=== PATIENT | female | born 1980 | race Caucasian/White ===

== ENCOUNTER → 2020-05-14 | Outpatient (CLI) | payer BC | LOC: LABNPT 08:09 | PROVIDERS: ATTEND Family Medicine | DX: Z20.828 Contact with and (suspected) exposure to other viral communicable diseases (principal) | CPT/HCPCS: 87635 ==

== ENCOUNTER 2020-11-06 16:57 | Emergency (ER) | payer BC, OTHER ==
[2020-11-06 17:03] VITALS: BP 133/69
--- NOTE | 2020-11-06 17:15 | ED EENT ---
History of Present Illness General Chief Complaint: Eye Problems Stated Complaint: BLURRY VISION Nursing Triage Note: Was looking at the computer and vision started to get blurry or "cross eyed." [place] like right eye was trying bounce inward and then back toward middle of eye. States she went to the bathroom and focused on her pupils and her eyes returned to normal. Episode lasted 3-5 minutes. Denies eye pain. Vision is normal at this time. hx of lasik eye surgery 10 years ago. Source: patient History of Present Illness Date Seen by Provider: November 06, 2020 Time Seen by Provider: 16:58 Initial Comments 40 yo female presenting with complaints of an episode of blurred and double vision around 1500. She states she sat down at the computer and felt her vision was a little blurry. Then when she looked up she felt like her right eye was jerking in and out and causing her to have double vision. She had gone to a mirror in the bathroom to look at her pupils and they were equal but with focusing on her pupils her vision returned to normal. Her right eye stopped bouncing and jerking in and out. Initially it seemed like it was jerking towards her nose and then back out. She denies having any headache, nausea, vomiting, recent head trauma, recent fall, recent eye injury. She states that she did have Lasix surgery about 10 years ago. She has been doing well with her vision since then. She does have to wear glasses for distance. She called her eye doctor in [place] after this episode and they recommended she go to the ER to be evaluated. She had tried going to urgent care first to avoid the cost of the ER but the urgent care told her she might be having a stroke and so she came to the ER to be seen. She is more nervous and scared now because of being told that she could be having a stroke. Her last eye appointment 3 to 4 m onths ago they had an extensive conversation about her risk for retinal detachment and complications from Myopia and Lasix surgery. She did not have any jerking movements of arms or legs. No numbness or tingling in extremities. since the episode resolved she has not had any further symptoms. Timing/Duration: abrupt Location: eye (R), eye (L) Prearrival Treatment: no prearrival treatment Associated Symptoms: denies symptoms Allergies and Home Medications Allergies Coded Allergies: No Known Drug Allergies (Unverified , 11/06/20) Patient Home Medication List Home Medication List Reviewed: Yes Review of Systems Review of Systems Constitutional: No chills, No dizziness, No fever Eyes: See HPI; Denies Foreign Body Sensation, Denies Pain, Denies Photophobia, Denies Previous Injury, Denies Shadows, Denies Tunnel Vision, Denies Contact Lenses; Glasses (wears glasses for distance) Ears: No Symptoms Reported Nose: no symptoms reported Mouth: no symptoms reported Throat: no symptoms reported Respiratory: no symptoms reported Cardiovascular: no symptoms reported Gastrointestinal: no symptoms reported Musculoskeletal: no symptoms reported Skin: no symptoms reported Neurological: Anxiety (worried since she was told that she might have had a stroke); Denies Headache Past Cbraevj-Mgmqap-Ipihrs Hx Past Med/Social Hx: Reviewed Nursing Past Med/Soc Hx Patient Social History Alcohol Use: Denies Use Smoking Status: Never a Smoker 2nd Hand Smoke Exposure: No Recent Infectious Disease Expo: No Recent Hopitalizations: No Seasonal Allergies Seasonal Allergies: No Past Medical History Surgeries: Yes (lasik) Adenoidectomy, Appendectomy Respiratory: No Cardiac: No Neurological: No Genitourinary: No Gastrointestinal: No Musculoskeletal: No Endocrine: No HEENT: No Cancer: No Psychosocial: No Integumentary: No Blood Disorders: No Adverse Reaction/Blood Tranf: No Physical Exam Vital Signs Vital Signs - First Documented 11/06/20 17:03 Temp 36.5 Pulse 86 Resp 16 B/P (MAP) 133/69 (90) Pulse Ox 98 Height, Weight, BMI Height: '" Weight: lbs. oz. kg; BMI Method: General Appearance: WD/WN, other (anxious) Eyes: bilateral eye normal inspection, bilateral eye PERRL, bilateral eye EOMI Cardiovascular: normal peripheral pulses Neurologic/Psychiatric: formulator II-XII nml as tested, alert, oriented x 3 Skin: normal color, warm/dry Progress/Results/Core Measures Results/Orders My Orders Orders - BIANCA FOWLER MD Ct Orbit/Sella/Iac Wo (11/06/20 17:13) Ct Head Wo (11/06/20 17:13) Nursing Communication (Order) (11/06/20 17:13) Vital Signs/I&O 11/06/20 17:03 Temp 36.5 Pulse 86 Resp 16 B/P (MAP) 133/69 (90) Pulse Ox 98 Blood Pressure Mean: 90 Progress Progress Note #1: Progress Note direct ophthalmascope exam does not demonstrate any papilledema or retinal hemo rrhage. Visual acuity documented by nurse and was consistent with her need for glasses for distance vision. Reassured pt that none of what she is describing seems to fit with a stroke. If it was a mass or tumor I would also expect her to still be having symptoms and not to have them resolve within a minute or two. Will order CT head and orbits to look for abnormality and if that looks ok then refer back to her Eye doctor and PCP in [place]. Progress Note #2: Time: 17:56 Progress Note No acute abnormality on CT head or Orbits. Will have her try to rest and not strain her eyes. Follow up with her eye doctor for formal eye exam and evaluation. Diagnostic Imaging Diagonstic Imaging: CT Plain Films/CT/US/NM/MRI: facial bones (orbits), head Comments NAME: VIVIANA BOYER [facility] REC#: [id number] PT STATUS: REG ER : 1980 PHYSICIAN: BIANCA FOWLER MD ADMIT DATE: 11/06/20/ER FS Signed Date of Exam:11/06/20 CT ORBIT/SELLA/IAC WO PROCEDURE: CT orbit without contrast. TECHNIQUE: Multiple contiguous axial images were obtained through the facial bones without the use of intravenous contrast. Auto Exposure Controls were utilized during the CT exam to meet ALARA standards for radiation dose reduction. INDICATION: Sudden onset of double vision around the 3:00 PM with right eye jerking movements. Symptoms have subsided at this time. Previous LASIK surgery. COMPARISON STUDIES: CT scan the head from today. FINDINGS: CT scanning orbits without contrast demonstrates normal appearance of the globes. The extraocular muscles are of normal caliber. No enlargement of the venous structures are present. The optic nerve appears normal. Gaze appears to be conjugate. Optic chiasm is unremarkable. Visualized portions of the paranasal sinuses are normal. IMPRESSION: Normal noncontrast CT scanning of the orbits. Dictated by: Dictated on workstation # [id number] Dict: 11/06/20 1746 Trans: 11/06/20 7057 [facility] [id number] Interpreted by: MOMO THAYER MD Electronically signed by: MOMO THAYER MD 11/06/201752 [facility], [place] NAME: VIVIANA BOYER [facility] REC#: [id number] PT STATUS: REG ER : 1980 PHYSICIAN: BIANCA FOWLER MD ADMIT DATE: 11/06/20/ER FS Draft Date of Exam:11/06/20 CT HEAD WO PROCEDURE: CT head without contrast. TECHNIQUE: Multiple contiguous axial images were obtained through the brain without the use of intravenous contrast. Auto Exposure Controls were utilized during the CT exam to meet ALARA standards for radiation dose reduction. INDICATION: Sudden onset of double vision around 3:00 PM with right eye jerking movements, symptoms have subsided at this time. Previous history of LASIK surgery. FINDINGS: Noncontrast CT scan of the head demonstrates mass effect, midline shift, hemorrhage or extra-axial fluid collections. Kilgore-white matter differentiation is normal. The ventricles, cortical sulci and basilar cisterns appear normal. Minimal calcifications are seen in the carotid siphons. Mastoid air cells are clear. Minimal calcifications are present in the carotid siphons. IMPRESSION: Negative CT scan of the head. Dictated on workstation # [id number] Dict: 11/06/201742 Trans: 11/06/201749 [facility] [id number] Interpreted by: MOMO THAYER MD Electronically signed by: Departure Impression Primary Impression: Blurring of vision Additional Impression: Eye muscle twitches Disposition: 01 HOME, SELF-CARE Condition: Stable Departure-Patient Inst. Decision time for Depature: 17:57 Referrals: REGINALDO DRAPER MD (PCP/Family) Primary Care Physician Patient Instructions: Double Vision (DC), Eyestrain Add. Discharge Instructions: Check back with your Eye doctor and Primary care. The Eye doctor can perform a formal and complete eye exam to look for other abnormalities but your CT scan today did not show any sign of stroke, bleeding, mass, or tumor. Try to not strain your eyes and get plenty of rest. All discharge instructions reviewed with patient and/or family. Voiced understanding. BIANCA FOWLER MD November 06, 2020 17:15
--- NOTE | 2020-11-06 17:49 | Diagnostic Imaging Report ---
PROCEDURE: CT head without contrast. TECHNIQUE: Multiple contiguous axial images were obtained through the brain without the use of intravenous contrast. Auto Exposure Controls were utilized during the CT exam to meet ALARA standards for radiation dose reduction. INDICATION: Sudden onset of double vision around 3:00 PM with right eye jerking movements, symptoms have subsided at this time. Previous history of LASIK surgery. FINDINGS: Noncontrast CT scan of the head demonstrates mass effect, midline shift, hemorrhage or extra-axial fluid collections. Kilgore-white matter differentiation is normal. The ventricles, cortical sulci and basilar cisterns appear normal. Minimal calcifications are seen in the carotid siphons. Mastoid air cells are clear. Minimal calcifications are present in the carotid siphons. IMPRESSION: Negative CT scan of the head. Dictated by: Dictated on workstation # [id number]
--- NOTE | 2020-11-06 17:50 | Diagnostic Imaging Report ---
PROCEDURE: CT orbit without contrast. TECHNIQUE: Multiple contiguous axial images were obtained through the facial bones without the use of intravenous contrast. Auto Exposure Controls were utilized during the CT exam to meet ALARA standards for radiation dose reduction. INDICATION: Sudden onset of double vision around the 3:00 PM with right eye jerking movements. Symptoms have subsided at this time. Previous LASIK surgery. COMPARISON STUDIES: CT scan the head from today. FINDINGS: CT scanning orbits without contrast demonstrates normal appearance of the globes. The extraocular muscles are of normal caliber. No enlargement of the venous structures are present. The optic nerve appears normal. Gaze appears to be conjugate. Optic chiasm is unremarkable. Visualized portions of the paranasal sinuses are normal. IMPRESSION: Normal noncontrast CT scanning of the orbits. Dictated by: Dictated on workstation # [id number]
== END 2020-11-06 17:59 | disposition home or self-care (01) ==
LOC: EDUNIT# 16:57 → ER FS 16:59
DX: H53.8 Other visual disturbances (principal); R25.3 Fasciculation
CPT/HCPCS: 70450; 70480

== ENCOUNTER 2021-04-07 21:35 | Emergency (ER) | payer BC ==
--- OUTSIDE RECORDS SUMMARY | 2021-04-07 21:40 | XMS REPORT | Clinical Summary ---
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 Name Role Phone PCP Unavailable Allergies No known active allergies Medications End Date Status Medication Sig Dispensed Refills Start Date Active Norgestim-Eth Estrad One orally 28 tablet 12 10/08 Triphasic (TRI-SPRINTEC) daily 4 0.18/0.215/0.25 MG-35 MCG TABS Active Problems Problem Noted Date Unspecified vitamin D deficiency Borderline personality disorder Depressive disorder, not elsewhere clas sified Disorder of bone and cartilage, unspeci fied Papanicolaou smear of cervix with low g rade squamous intraepithelial lesion (LGSIL) Resolved Problems Problem Noted Date Resolved Date Allergic urticaria 03/19/2013 11/08/2013 Sinusitis 03/19/2013 11/08/2013 Allergic rhinitis due to other allergen 03/19/2013 11/08/2013 Rhinitis due to pollen 03/19/2013 11/08/2013 Mixed hyperlipidemia 11/08/2013 Immunizations Name Administration Dates Next Due HPV, quadrivalent 09/25/2007, 07/26/2007 (Gardasil) Tdap 12/04/2007 Social History Date Tobacco Use Types Packs/Day Years Used Former Smoker Comments: Quit smoking: Year stopped 201 0/Number of yrs: /Packs per day: /Pack years: Sex Assigned at Date Recorded Not on file Last Filed Vital Signs Reading Time Taken Comments Vital Sign 105/65 11/08/2013 1:07 PM CDT Blood Pressure 64 11/08/2013 1:07 PM CDT Pulse - - Temperature 16 04/25/2013 9:10 AM CDT Respiratory Rate - - Oxygen Saturation - - Inhaled Oxygen Concentration 57.4 kg (126 lb 9.6 oz) 11/08/2013 1:07 PM CDT Weight 154.9 cm (5' 1") 11/08/2013 1:07 PM CDT Height 23.92 11/08/2013 1:07 PM CDT Body Mass Index Plan of Treatment Health Maintenance Due Date Last Done Comments COVID-19 Vaccine (1) 1993 Hepatitis C Screening 1999 MMR Vaccines-Adult 2000 Cervical Cancer Screening 09/21/2014 09/22/2011, 09/22/2011 DTaP,Tdap,and Td Vaccines 12/03/2017 12/04/2007 (2 - Td or Tdap) Influenza Vaccine (#1) 2021 Pneumo-Vaccine: 65+Yrs (1 2046 of 1 - PPSV23) HIB Vaccines Aged Out No longer eligible based on patient's age to complete this topic IPV Vaccines Aged Out No longer eligible based on patient's age to complete this topic Meningococcal Vaccine Aged Out No longer eligib le based on patient's age to complete this topic Pneumo-Vaccine: Peds (0-5 Aged Out No longer el igible based on patient's age to Yrs) & At-Risk Patients complete this topic (6-64 Yrs) Rotavirus Vaccines Aged Out No longer eligible based on patient's age to complete this topic Results Not on filefrom Last 3 Months Advance Directives For more information, please contact: [phone] 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
--- NOTE | 2021-04-07 21:47 | ED Lower Extremity ---
General Stated Complaint: LT TOES PAIN History of Present Illness Date Seen by Provider: Apr 07, 2021 Time Seen by Provider: 21:43 Initial Comments 40-year-old female presents with left second toe pain. Was walking and stubbed it on piece of furniture causing the toe to deform. Patient straightened the toe herself and taped it up and came to the ER. Denies any other pain or injury. Denies previous trauma to this foot and toe. Allergies and Home Medications Allergies Coded Allergies: No Known Drug Allergies (Unverified , 11/06/20) Patient Home Medication List Home Medication List Reviewed: Yes Review of Systems Constitutional: no symptoms reported Musculoskeletal: other (left foot pain. left 2nd toe injury/ pain) Skin: no symptoms reported Psychiatric/Neurological: Denies Numbness, Denies Paresthesia Past Sfisuqf-Vyxhnv-Fvihrs Hx Patient Social History Tobacco Use?: No Seasonal Allergies Seasonal Allergies: No Past Medical History Surgeries: Yes (lasik) Adenoidectomy, Appendectomy Respiratory: No Cardiac: No Neurological: No Genitourinary: No Gastrointestinal: No Musculoskeletal: No Endocrine: No HEENT: No Cancer: No Psychosocial: No Integumentary: No Blood Disorders: No Adverse Reaction/Blood Tranf: No Physical Exam Vital Signs Vital Signs - First Documented 04/07/21 21:40 Pulse 66 Resp 18 B/P (MAP) 133/80 (97) Pulse Ox 100 O2 Delivery Room Air Capillary Refill : Height, Weight, BMI Height: '" Weight: lbs. oz. kg; BMI Method: General Appearance: WD/WN, no apparent distress Ankles: bilateral ankle non-tender, bilateral ankle normal inspection, bilateral ankle normal range of motion, bilateral ankle no evidence of injury Feet: left foot bone tenderness, left foot limited range of motion, left foot pain, left foot soft tissue tenderness, left foot swelling Neurologic/Psychiatric: no motor/sensory deficits, alert, normal mood/affect Skin: normal color, warm/dry generalized pain and tenderness distal foot and 2nd toe without deformity Progress/Results/Core Measures Results/Orders My Orders Orders - DIAMOND JOY DO Foot 3 View Left (04/07/21 21:44) Vital Signs/I&O 04/07/21 21:40 Pulse 66 Resp 18 B/P (MAP) 133/80 (97) Pulse Ox 100 O2 Delivery Room Air Diagnostic Imaging Diagonstic Imaging: Xray Departure Impression Primary Impression: Fracture of toe Qualified Codes: S92.515A - Nondisplaced fracture of proximal phalanx of left lesser toe(s), initial encounter for closed fracture Disposition: HOME, SELF-CARE Condition: Stable Departure-Patient Inst. Decision time for Depature: 22:07 Referrals: REGINALDO DRAPER MD (PCP/Family) Primary Care Physician Patient Instructions: Toe Fracture ED Add. Discharge Instructions: Wear your boot for all ambulation. See your Doctor in 2 weeks for re-evaluation. Ice 20min twice daily for 1 week, elevate to minimize swelling Scripts Ibuprofen (Ibuprofen) 800 Mg Tablet 800 MG PO Q8H PRN for PAIN, #30 TAB 0 Refills Prov: DIAMOND JOY DO 04/07/21 Hydrocodone/Acetaminophen (Hydrocodone-Acetamin 5-325 mg) 1 Each Tablet 1 EACH PO Q4H for Abdominal Pain, #15 TAB Prov: DIAMOND JOY DO 04/07/21 DIAMOND JOY DO Apr 07, 2021 21:47
[2021-04-07] MEDS ORDERED: IBUP-1780 PO (22:09)
[2021-04-07] MEDS ORDERED: ACHD5005 PO (22:09)
[2021-04-07] MEDS ORDERED: HYDROcodone/APAP 5 MG/325 MG (LORTAB) TAB PO ONE (22:15)
[2021-04-07 22:18] VITALS: BP 133/80
--- NOTE | 2021-04-08 06:10 | Diagnostic Imaging Report ---
INDICATION: Trauma to left 2nd toe. FINDINGS: There is a transverse fracture along the base of the proximal phalanx of the left 2nd toe. The articulating surfaces are not involved. Remainder of the foot appears normal. IMPRESSION: Nondisplaced fracture at the base of the proximal phalanx left 2nd toe not including the articulating surface. Dictated by: Dictated on workstation # [id number]
== END 2021-04-07 22:19 | disposition home or self-care (01) ==
LOC: EDUNIT# 21:35 → ER FS 21:37
DX: S92.515A Nondisplaced fracture of proximal phalanx of left lesser toe(s), initial encounter for closed fracture (principal); W22.03XA Walked into furniture, initial encounter
CPT/HCPCS: 73630

== ENCOUNTER 2021-07-07 20:34 | Emergency (ER) | payer BC ==
[~2021-07-07] VITALS: Ht 162 cm; Wt 76.4 kg
[~2021-07-07 20:34] MED LIST: ACHD5005 PO; IBUP-1780 PO
[2021-07-07] MEDS ORDERED: PRD20T PO (21:43)
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
[2021-07-07 21:50] VITALS: BP 139/89
== END 2021-07-07 21:50 | disposition home or self-care (01) ==
LOC: EDUNIT# 20:34 → ER FS 20:36
DX: G56.21 Lesion of ulnar nerve, right upper limb (principal); M79.621 Pain in right upper arm; R20.2 Paresthesia of skin; M25.521 Pain in right elbow
CPT/HCPCS: 99281

== ENCOUNTER → 2021-09-11 | Outpatient (CLI) | payer BC ==
[~2021-09-11] MED LIST changes: +PRD20T PO
--- NOTE | 2021-09-14 10:00 | Diagnostic Imaging Report ---
INDICATION: Routine screening. COMPARISON: No prior mammograms are available for comparison. This is a baseline study. TECHNIQUE: 2D and 3D bilateral screening mammography was performed with CAD. FINDINGS: Both breasts are heterogeneously dense, limiting the sensitivity of mammography. No mass or malignant-appearing microcalcifications are seen. The axillae are unremarkable. IMPRESSION: No mammographic features suspicious for malignancy are identified. ACR BI-RADS Category 1: Negative. Result letter will be mailed to the patient. Note: At least 10% of breast cancer is not imaged by mammography. Dictated by: Dictated on workstation # [id number]
== END ==
LOC: RAD 15:04
PROVIDERS: ATTEND Obstetrics & Gynecology
DX: Z12.31 Encounter for screening mammogram for malignant neoplasm of breast (principal)
CPT/HCPCS: 77063; 77067